=== PATIENT | female | born 1985 | race Caucasian/White ===

== ENCOUNTER 2021-12-14 09:19 | Outpatient (CLI) | payer BC, SELFPAY ==
[2021-12-14] MEDS: RHO(D) IMMUNE GLOBULIN 300 MCG/2 ML SYRINGE IM (14:44)
== END 2021-12-14 09:20 | disposition home or self-care (01) ==
PROVIDERS: PCP Family Medicine; Visit Provider Advanced Practice Midwife
DX: Z36.89 Encounter for other specified antenatal screening (principal); Z3A.00 Weeks of gestation of pregnancy not specified
CPT/HCPCS: 36415; 85461; 86850; 86900; 86901; 90384; 96372; J2790

== ENCOUNTER 2022-02-12 10:02 | Observation (INO) | payer BC, SELFPAY ==
--- NOTE | 2022-02-12 10:02 | OBADM ---
This patient, Serina Spivey, admitted to the OB room OB Post 115 for observation. Patient/family oriented to hospital policies and general routines including ID bracelet, bed and alarms, visiting hours, pain management, procedures, bathroom and other care routines, personal items, smoking policy, room service/diet, and visiting hours. Patient/Family are encouraged to report perceived risks to care and to ask questions if they do not understand what they are told or what they should do.
[2022-02-12 10:22] VITALS: TEMP 36.4
[2022-02-12 10:30] VITALS: BP 107/61; PULSE 105; BMI 34.0
[2022-02-12] MEDS: ONDANSETRON INJ 4 MG/2 ML VIAL IV PUSH (11:02)
[2022-02-12] MEDS: DEXTROSE 5%/LACTATED RINGERS 1,000 ML 999 ML IV CONT (11:02)
[2022-02-12 11:33] LABS: Influenza A QL RT-PCR Negative (Negative); Influenza B QL RT-PCR Negative (Negative); SARS-CoV-2 RNA PCR Negative
--- NOTE | 2022-02-12 12:33 | PM.IMHP ---
H&P: HPI History of Present Illness Date/Time: 02/12/22 12:33 Chief Complaint: cough and nausea Narrative: this patient is a 36-year-old 2 para 1001 at 37 weeks gestation who had a severe cough and associated nausea. She cannot keep down fluids. She reports good movement. She denies any loss of fluid, vaginal bleeding, contractions. Her is uncomplicated. We observed patient for few hours. She was treated with antiemetics and cough syrup with hydrocodone. We got her coughing and her nausea under control. She was resuscitated With IV fluids. She will follow up this week in the office. Review of Systems Review of Systems: All systems reviewed & are unremarkable except as noted in HPI and below Constitutional: Constitutional: Denies chills, Denies fatigue, Denies fever(s) and Denies weakness Eyes: Eyes: Denies blurry vision, Denies change in vision, Denies loss of peripheral vision, Denies loss of vision, Denies other visual disturbances and Denies eye pain ENT: Denies vertigo, Denies dizziness, Denies hearing loss, Denies mouth pain, Denies nasal obstruction, Denies neck mass and Denies neck pain Cardiovascular: Cardiovascular: Denies chest pain, Denies diaphoresis, Denies syncope, Denies leg edema and Denies dyspnea Respiratory: Respiratory: Denies chest congestion, Denies cough, Denies hemoptysis, Denies dyspnea and Denies wheezing Gastrointestinal: Gastrointestinal: Denies abdominal pain, Denies constipation, Denies diarrhea, Denies nausea and Denies vomiting Genitourinary: Genitourinary: Denies hematuria, Denies change in libido, Denies nocturia, Denies genital lesions, Denies flank pain and Denies urinary urgency Musculoskeletal: Musculoskeletal: Denies abnormal gait, Denies back pain, Denies myalgias, Denies arthralgias, Denies joint swelling, Denies muscle weakness and Denies neck pain Integumentary/Breasts: Skin/Breast: Denies swelling, Denies breast pain, Denies breast mass, Denies dry skin, Denies nipple discharge, Denies unusual bruising and Denies jaundice Neurologic: Denies Neuro-related abnormal movements, Denies Abnormal speech present, Denies abnormal gait, Denies behavioral changes, Denies confusion, Denies vertigo, Denies dizziness, Denies syncope, Denies loss of vision, Denies memory loss, Denies convulsions and Denies weakness Psychiatric: Psychiatric: Denies abnormal sleep pattern, Denies behavioral changes, Denies change in libido, Denies confusion, Denies depression, Denies anhedonia and Denies memory loss Endocrine: Endocrine: Reports no additional endocrine complaints, Denies change in libido and Denies fatigue Hematologic/Lymphatic: Hematologic/Lymphatic: Reports no additional hematologic/lymphatic complaints Allergic/Immunologic: Allergic/Immunologic: Reports no additional allergic/immunologic complaints and Denies wheezing PMFSH Past Medical History Medical History (Updated 02/12/22 @ 12:38 by Ian Paulino MD) Asthma Family History Family History Mother Family history of thyroid disease Sibling Family history of psoriasis Grandparent Family history of malignant neoplasm Family history of malignant neoplasm of breast Family history of heart disease in male family member before age 55 Other Diabetes mellitus Hypertension Social History Social History (System 07/01/20 @ 11:22 by Yevgeniy Mora) Smoking status: Never smoker Alcohol intake: current Substance use: never Gender identity (if verbalized by the patient): Female Spiritual care concerns: No Meds Home Medications and Allergies Home Medications Medication Instructions Recorded Confirmed Type albuterol sulfate 90 mcg/actuation 2 puff inhalation Q3-4H PRN 12/19/18 02/02/22 History aerosol inhaler (ProAir HFA) Shortness Of Breath vit no.95-ferrous 1 tablet PO DAILY 12/19/18 02/02/22 History fumarate 28 mg-fol
--- NOTE | 2022-03-01 20:18 | PM.OBTRLD ---
OB - Triage/Final Diagnosis Visit Information Comments/Additional reasons for admission: I have assessed the risk for this patient, Serian Spivey, and determined that she would benefit from observation care. Evaluation Laboratory results: Laboratory Tests 02/12/22 10:49 Influenza A (RT-PCR) Negative Influenza B (RT-PCR) Negative SARS-CoV-2 RNA (RT-PCR) Negative Final Diagnosis (1) Cough: Code(s): R05.9 - Cough, unspecified Status: Acute
== END 2022-02-12 12:57 | disposition home or self-care (01) ==
PROVIDERS: Admitting Provider Obstetrics & Gynecology; PCP Family Medicine; Visit Provider Obstetrics & Gynecology
DX: O26.893 Other specified pregnancy related conditions, third trimester (principal); R05.9 Cough, unspecified; R11.0 Nausea; Z3A.37 37 weeks gestation of pregnancy; Z79.51 Long term (current) use of inhaled steroids; Z79.891 Long term (current) use of opiate analgesic; Z79.899 Other long term (current) drug therapy
CPT/HCPCS: 84112; 87636; 96374; A9270; G0378; G0379; J2405; J7121

== ENCOUNTER 2022-02-17 10:31 | Outpatient (CLI) | payer BC, SELFPAY ==
--- NOTE | 2022-02-20 17:03 | WPDHOLTEREM ---
Holter/Event Monitor Holter/Event Monitor Date of procedure: 02/17/22 Holter/Event Procedure: 24 Hr Holter Monitor Indications: Tachycardia Conclusion: 1. 24 hour holter monitor on 02/17/22. 2. Underlying rhythm is sinus rhythm. HR range 61-152 bpm; average HR 95 bpm. 3. There is 1 premature supraventricular complex. No supraventricular tachycardia. 4. There are 4 premature ventricular complexes. No ventricular tachycardia. 5. No sinoatrial or atrioventricular blocks. No significant pauses greater than 2 seconds. 6. No symptoms available for correlation.
== END 2022-02-17 10:32 | disposition home or self-care (01) ==
PROVIDERS: PCP Family Medicine; Visit Provider Advanced Practice Midwife
DX: R00.0 Tachycardia, unspecified (principal)
CPT/HCPCS: 93225; 93226

== ENCOUNTER 2022-02-26 06:00 | Inpatient (IN) | payer BC, SELFPAY ==
[2022-02-26] VITALS (201 sets, daily range): BP systolic 62–124; BP diastolic 33–100; PULSE 60–165; RESP 18–20; TEMP 36.2–37.2; O2SAT 73–100; BMI 34.2
--- NOTE | 2022-02-26 06:09 | LDADM ---
This patient, Serina Spivey, was admitted to Labor/Delivery/Recovery 105 on 02/26/22 at 06:00. Plans for labor, pain management and were discussed with patient. Patient/family oriented to hospital policies and general routines including ID bracelet, bed and alarms, visiting hours, pain management, procedures, bathroom and other care routines, personal items, smoking policy, room service/diet and guest tray routines, infant security routines, and visiting hours. Patient/Family are encouraged to report perceived risks to care and to ask questions if they do not understand what they are told or what they should do. See OBIX for further documentation.
[2022-02-26 06:48] LABS: Basophils Absolute Auto 0.1 K/mm3 (0.0-0.1); Basophils Percent Auto 0.7 % (0.2-1.2); Eosinophils Absolute Auto 0.1 K/mm3 (0-0.3); Eosinophils Percent Auto 0.9 % (0-4.4); Hematocrit 33.5 % (37.0-47.0); Hemoglobin 11.2 g/dL (12.0-15.0); Immature Granulocyte Absolute 0.03 K/mm3 (0.00-0.031); Immature Granulocyte Percent A 0.3 % (0-0.5); Lymphocytes Absolute Auto 5.25 K/mm3 (0.9-3.2); Mean Corpuscular HGB Conc 33.4 g/dl (32-36); Mean Corpuscular Hemoglobin 30.3 pg (26-34); Mean Corpuscular Volume 90.5 fl (80-100); Mean Platelet Volume 10.2 fl (7.4-10.4); Monocytes Absolute Auto 0.4 K/mm3 (0.1-0.6); Neutrophils Absolute Auto 3.3 K/mm3 (1.3-6.7); Neutrophils Percent Auto 36.1 % (45.5-73.1); Platelet Count Result 231 k/mm3 (150-375); Red Cell Distribution Width 14.4 % (11.5-14.5); White Blood Count 9.1 K/mm3 (4.5-10.0)
[2022-02-26] MEDS: OXYTOCIN 30 UNITS/NS 500 ML 30 UNITS/500 ML BAG IV CONT (07:00)
[2022-02-26] MEDS: LACTATED RINGERS 1,000 ML 125 ML IV CONT ×4 (07:00→16:21)
[2022-02-26 07:08] LABS: Atypical Lymphocytes Present; Platelet Estimate Adequate (Adequate); Schistocytes None Seen (NORMAL)
--- NOTE | 2022-02-26 08:39 | WPDOBADMIT ---
Obstetrics - Admit Note Admission Note: record reviewed. No pertinent additions to the history and/or any subsequent changes in the physical findings that are not consistent with the expected course of the were found. IOL, last aleksandra 6 cm, SVE 2/50/-2, AROM small amount of clear odorless fluid Additions to the history and/or subsequent changes in the physical findings follow. None.
[2022-02-26] MEDS: PHENYLEPHRINE 1,000 MCG/10 ML SYRINGE 1000 MCG (11:11)
[2022-02-26] MEDS: ONDANSETRON INJ 4 MG/2 ML VIAL IV PUSH ×2 (16:21→23:00)
[2022-02-26] MEDS: miSOPROStol 200 MCG TABLET 1000 MCG (19:16)
--- NOTE | 2022-02-26 19:25 | P.PCNOB_ITS ---
OB - Delivery Note Procedure Delivery date: 02/26/22 Procedure: Induction method: AROM Delivery augmentation: Pitocin Delivery monitor: External FHT and External Uterine Route of delivery: Laceration Description: None Specimen: Yes Quantitative Blood Loss (ml): 407 Anesthesia type: Epidural Disposition: Floor Narrative: baby taken to warmer to be evaluated, mom and baby stable now and skin to skin [place] Baby Date of : 02/26/22 Time of : 19:04 Weeks of gestation at delivery: 39 Infant gender: Male Weight (pounds): 6 Weight (ounces): 10 presentation: vertex position: Right Occiput Anterior Placenta delivery description: Spontaneous Cord Vessel Description: 3 Vessels and Clamped/Cut
[2022-02-26] MEDS: CLINDAMYCIN 600 MG/D5W 50 ML 600 MG/50 ML PIGGYBACK 100 MG IVPB (20:31)
[2022-02-26] MEDS: GENTAMICIN 80MG/SOD CHL 50 ML 80 MG/50 ML BAG 100 MG IVPB (21:05)
[2022-02-26] MEDS: BENZOCAINE 20% AER SPR (*SP) 56 GM CAN 1 SPRAY TOPICAL (21:09)
[2022-02-26] MEDS: WITCH HAZEL 40 PADS 1 PAD TOPICAL (21:09)
[2022-02-26] MEDS: IBUPROFEN 600 MG TABLET PO (21:09)
--- NOTE | 2022-02-26 22:18 | OBPPTRN ---
Patient transferred to post room #281 via W/C. Support person present. Oriented to unit, room, information board, rooming in, admission packet and security measures. Patient verbalizes understanding.
[2022-02-26 22:26] LABS: Estimated CRCL calculation 114 ml/min; Estimated Glomerular Filt Rate > 60
[2022-02-26] MEDS: ceFAZolin 2 GM/D5W 50 ML 2 GM/50 ML BAG IVPB (22:30)
[2022-02-26] MEDS: ACETAMINOPHEN 325 MG TABLET 650 MG PO (22:53)
[2022-02-27] VITALS (8 sets, daily range): BP systolic 106–114; BP diastolic 64–79; PULSE 76–82; RESP 16–18; TEMP 36.3–36.9; O2SAT 94–100
[2022-02-27] MEDS: IBUPROFEN 600 MG TABLET PO ×3 (04:20→16:45)
[2022-02-27] MEDS: GENTAMICIN 80MG/SOD CHL 50 ML 80 MG/50 ML BAG 100 MG IVPB ×3 (04:40→21:39)
[2022-02-27] MEDS: ceFAZolin 2 GM/D5W 50 ML 2 GM/50 ML BAG IVPB ×3 (06:30→22:18)
[2022-02-27] MEDS: MULTIVIT/MIN/PREN/FOL AC/IRON TABLET 1 TAB PO (07:00)
[2022-02-27] MEDS: DOCUSATE SODIUM 100 MG CAPSULE PO (07:00)
[2022-02-27] MEDS: ACETAMINOPHEN 325 MG TABLET 650 MG PO ×3 (07:09→20:29)
--- NOTE | 2022-02-27 08:10 | PM.OBPNVD ---
OB - PN: Subj Subjective Date/time seen: 02/27/22 08:10 Patient comments: no complaints baby status: doing well OB - PN: Obj Data Labs 02/26/22 06:28 02/26/22 21:55 Labs: Laboratory Results - last 24 hr 02/26/22 02/26/22 06:28 21:55 Creatinine 0.60 L Estim Creat Clear Calc 114 Estimated GFR > 60 Blood Type A Negative Antibody Screen Positive Antibody Identification Passive Due to RH Imm Glob Antigen Identification Cancelled MEGHAN, IgG Interpret Not Performed MEGHAN, Poly Interpret Negative MEGHAN, Complement Interp Not Performed OB - PN A/P Plan day: 1 Plan: routine care Time Spent With Patient Time: Total time spent is greater than 50% in coordination of care (as documented) at patient's floor/unit and/or counseling patient: Time with patient: less than 15 minutes Review of Systems Review of Systems: All systems reviewed & are unremarkable except as noted in HPI and below Exam Narrative: Fundus firm and vaginal flow controlled. No lower ext redness, warmth, or edema. Negative homans. Const: General: comfortable Chest: Breast/axilla inspection: normal inspection of the breasts Resp: Effort & Inspection: normal respiratory effort Cardio: Rate: regular rate GI: GI Palp: Yes Soft to palpation Psych: Appearance: grossly normal Affect: normal affect Attitude: cooperative Thought content: Yes Normal thought content present Judgement: Good judgement present (Psych)
[2022-02-27] MEDS: WITCH HAZEL 40 PADS 1 PAD TOPICAL (10:30)
[2022-02-27 11:59] LABS: Basophils Absolute Auto 0.1 K/mm3 (0.0-0.1); Basophils Percent Auto 0.5 % (0.2-1.2); Eosinophils Absolute Auto 0.1 K/mm3 (0-0.3); Eosinophils Percent Auto 1.1 % (0-4.4); Hematocrit 32.3 % (37.0-47.0); Hemoglobin 10.4 g/dL (12.0-15.0); Immature Granulocyte Absolute 0.03 K/mm3 (0.00-0.031); Immature Granulocyte Percent A 0.3 % (0-0.5); Lymphocytes Absolute Auto 4.11 K/mm3 (0.9-3.2); Lymphocytes Percent Auto 43.3 % (18.3-44.2); Mean Corpuscular HGB Conc 32.2 g/dl (32-36); Mean Corpuscular Hemoglobin 29.6 pg (26-34); Monocytes Absolute Auto 0.5 K/mm3 (0.1-0.6); Monocytes Percent Auto 5.6 % (2.6-8.5); Neutrophils Absolute Auto 4.7 K/mm3 (1.3-6.7); Neutrophils Percent Auto 49.2 % (45.5-73.1); Platelet Count Result 188 k/mm3 (150-375); Red Blood Count 3.51 M/mm3 (4.2-5.4); Red Cell Distribution Width 14.6 % (11.5-14.5); White Blood Count 9.5 K/mm3 (4.5-10.0)
[2022-02-27 12:07] LABS: Estimated CRCL calculation 114 ml/min; Estimated Glomerular Filt Rate > 60
[2022-02-27 12:20] LABS: Atypical Lymphocytes Present; Platelet Estimate Adequate (Adequate); Schistocytes None Seen (NORMAL)
--- NOTE | 2022-02-27 12:35 | WPDANLDPN2 ---
Anes-Prog Note L&D Date/Time: 02/27/22 12:35 Comfortable throughout: labor and delivery Neuraxial method: epidural Epidural/Spinal procedure site: tender Neuro status: Neuro function grossly intact. Cardiovascular status: normal Respiratory status: normal Airway patency: baseline Mental status: baseline Post-Op hydration status: normal Vital Signs: Last Vital Signs Temp 36.9 C 02/27/22 12:03 Pulse 76 02/27/22 12:03 Resp 16 02/27/22 12:03 BP 111/64 02/27/22 12:03 Pulse Ox 99 02/27/22 12:03 O2 Del Method Room Air 02/27/22 08:22 Pain score (VAS): 3/10 I/O: Intake & Output 02/26/22 02/27/22 02/27/22 23:59 07:59 15:59 Intake Total 1050 100 300 Balance 1050 100 300 Post-procedural complaints: none Patient feedback: Patient satisfied with anesthetic care.
--- NOTE | 2022-02-27 15:51 | PC.NURSE ---
[id number] Per request RN consulted with patient to assess needs related to . Mother led the conversation with her?plans to feed?her and the?experience so far. Mother works well with her infant with encouragement and education. Encouraged understanding of the benefits of skin to skin (demonstrating unwrapping and placing upright on her chest), stimulating with massage touch, changing positions to encourage wakefulness, how to watch for early feeding cues, responsive feeding, feeding on demand (aiming for 8-12 times in 24 hours, about every 2-3 hours), milk production, building/maintaining a milk supply, duration of feeding, signs of adequate intake/output and how to record on the feeding sheet. Reviewed positioning and ear, shoulder, hip alignment, supporting the breast to facilitate a deep latch, asymmetrical latch (off-center), leading with the chin with a big, open, wide gape and body close to mother. Infant latched optimally to the left breast in football position. was able to maintain latch without discomfort to mother but did not maintain suction for more than a few suck, then would hold the nipple in his mouth. Mother has been using the nipple shield, pumping and supplementing with bottles of formula. We discussed the risks and benefits of all the choices and mother was encouraged to continue practicing the skills to strengthen her infant's abilities to effectively breastfeed. Reviewed with mother to pump her breast at least 8 times in a 24 hour period 1-2 times at night if is not latching to the breast. When mother uses the nipple shield the nipple does enter the shield 3/4 of the tip of the shield, however, mother states the nipple had a white crease across the middle of the nipple . Mother does have a history of with a nipple shield for months with her first child. Mother was encouraged to remove the nipple shield after suckled for a time to latch infant without the shield. Nipple care reviewed with optimal latch and good positioning and practice waiting for the big,open, wide gape with the nipple shield as well so to train for optimal latching to the breast. Resources used to facilitate learning were used with the tool, mom and baby guide. Mother voiced understanding of skin to skin, stimulating with massage touch, responsive feedings, talking to infant to encourage if it has been 2-2.5 hours since the start of the last , to call if does not latch, or if there is discomfort with . Resources provided for inpatient/outpatient with the mom/baby guide. Mother voiced understanding of information, demonstrated learning and will call if there is a request for assistance. Reported to the primary RN present in the room.
[2022-02-27 16:55] LABS: Rapid Plasma Reagin Non-Reactive (NonReactive)
[2022-02-27 21:25] LABS: Gentamicin Trough 1.1 ug/mL (<1.0)
[2022-02-28 07:35] VITALS: BP 99/68; PULSE 68; RESP 16; TEMP 36.6; O2SAT 100
--- NOTE | 2022-02-28 07:35 | PM.OBPNVD ---
OB - PN: Subj Subjective Date/time seen: 02/28/22 07:35 s/p vaginal delivery day 2 OB - PN: Obj Data Labs 02/27/22 11:49 02/27/22 11:49 Labs: Laboratory Results - last 24 hr 02/26/22 02/26/22 02/27/22 06:28 06:28 11:49 WBC RBC Hgb Hct MCV MCH MCHC RDW Plt Count MPV Immature Gran % (Auto) Neut % (Auto) Lymph % (Auto) [place] % (Auto) Eos % (Auto) Baso % (Auto) Lymph # (Auto) [place] # (Auto) Eos # (Auto) Baso # (Auto) Abs Immat Gran (auto) Absolute Neuts (auto) Absolute Nucleated RBC Nucleated RBC % Atypical Lymphocytes Platelet Estimate Schistocytes Creatinine 0.60 L Estim Creat Clear Calc 114 Estimated GFR > 60 Gentamicin Trough RPR Non-reactive Antibody Identification Inconclusive Antigen Identification Cancelled 02/27/22 02/27/22 11:49 20:43 WBC 9.5 RBC 3.51 L Hgb 10.4 L Hct 32.3 L MCV 92.0 MCH 29.6 MCHC 32.2 RDW 14.6 H Plt Count 188 MPV 10.0 Immature Gran % (Auto) 0.3 Neut % (Auto) 49.2 Lymph % (Auto) 43.3 [place] % (Auto) 5.6 Eos % (Auto) 1.1 Baso % (Auto) 0.5 Lymph # (Auto) 4.11 H [place] # (Auto) 0.5 Eos # (Auto) 0.1 Baso # (Auto) 0.1 Abs Immat Gran (auto) 0.03 Absolute Neuts (auto) 4.7 Absolute Nucleated RBC 0.0 Nucleated RBC % 0.0 Atypical Lymphocytes Present Platelet Estimate Adequate Schistocytes None seen Creatinine Estim Creat Clear Calc Estimated GFR Gentamicin Trough 1.1 RPR Antibody Identification Antigen Identification OB - PN A/P Plan day: 2 Plan: routine care and discharge home Time Spent With Patient Time: Total time spent is greater than 50% in coordination of care (as documented) at patient's floor/unit and/or counseling patient: Review of Systems Review of Systems: All systems reviewed & are unremarkable except as noted in HPI and below Exam Const: General: cooperative and healthy appearing
--- NOTE | 2022-02-28 07:36 | PM.OBDSVD ---
DS: Admitting Diagnosis Discharge Date 02/28/22 Admitting Diagnosis IOL DS: Discharge Diagnosis Discharge Diagnosis (1) Vaginal delivery: Code(s): O80 - Encounter for full-term uncomplicated delivery Status: Acute OB - DS: Summary OB Procedures : None OB Procedures Intrapartum: Spontaneous Vag Delivery OB Procedures: : None Time Spent with Patient Time attestation: Total time spent providing and/or coordinating discharge services: DS: Data Data Completed and Pending Pending studies at discharge: Pending at discharge 02/26/22 19:08 Surgical [PTH] Routine Labs on day of discharge: Labs from last 24 hours 02/27/22 02/27/22 02/27/22 20:43 11:49 11:49 WBC 9.5 RBC 3.51 L Hgb 10.4 L Hct 32.3 L MCV 92.0 MCH 29.6 MCHC 32.2 RDW 14.6 H Plt Count 188 MPV 10.0 Immature Gran % (Auto) 0.3 Neut % (Auto) 49.2 Lymph % (Auto) 43.3 [place] % (Auto) 5.6 Eos % (Auto) 1.1 Baso % (Auto) 0.5 Lymph # (Auto) 4.11 H [place] # (Auto) 0.5 Eos # (Auto) 0.1 Baso # (Auto) 0.1 Abs Immat Gran (auto) 0.03 Absolute Neuts (auto) 4.7 Absolute Nucleated RBC 0.0 Nucleated RBC % 0.0 Atypical Lymphocytes Present Platelet Estimate Adequate Schistocytes None seen Creatinine 0.60 L Estim Creat Clear Calc 114 Estimated GFR > 60 Gentamicin Trough 1.1 RPR Antibody Identification Antigen Identification 02/26/22 02/26/22 06:28 06:28 WBC RBC Hgb Hct MCV MCH MCHC RDW Plt Count MPV Immature Gran % (Auto) Neut % (Auto) Lymph % (Auto) [place] % (Auto) Eos % (Auto) Baso % (Auto) Lymph # (Auto) [place] # (Auto) Eos # (Auto) Baso # (Auto) Abs Immat Gran (auto) Absolute Neuts (auto) Absolute Nucleated RBC Nucleated RBC % Atypical Lymphocytes Platelet Estimate Schistocytes Creatinine Estim Creat Clear Calc Estimated GFR Gentamicin Trough RPR Non-reactive Antibody Identification Inconclusive Antigen Identification Cancelled Discharge Plan Discharge Attending physician on discharge: Ian Paulino Discharging Clinician: Demetra Gar Patient Disposition: Home, Self-Care Activity: pelvic rest Diet: as tolerated Patient Instructions: Antibiotic Form Stand Alone Forms: General Discharge Information Follow-up/Referrals: Demetra Gar CNM [Certified Nurse Information Systems Analyst] - 4 Weeks Discharge Medications: Continued albuterol sulfate [ProAir HFA] 90 mcg/actuation Hfa Aerosol Inhaler 2 puff INHALATION Q3-4H PRN (Reason: Shortness Of Breath) PNV cmb#95-ferrous fumarate-FA [] 28 mg iron- 800 mcg Tablet 1 tablet PO DAILY Date of admission: 02/26/22 06:00 Primary Care Provider: Tobi,Eilu Abdi Admitting Provider: Ian Paulino Attending physician on admission: Ian Paulino Condition: Stable
[2022-02-28] MEDS: DOCUSATE SODIUM 100 MG CAPSULE PO (07:37)
[2022-02-28] MEDS: IBUPROFEN 600 MG TABLET PO (07:37)
[2022-02-28] MEDS: MULTIVIT/MIN/PREN/FOL AC/IRON TABLET 1 TAB PO (07:37)
--- NOTE | 2022-02-28 09:10 | PC.NURSE ---
Namrata Pelletier RN has looked over and approved patient's charting that Carmen Felder, Student RN, has completed.
--- NOTE | 2022-02-28 09:17 | PC.NURSE ---
Patient to view the discharge video Mother & Baby Care, The First Two Weeks online. Patient was given the opportunity and encouraged to ask questions. Patient verbalized understanding of information shared and has been given the mother/baby guide for home reference.
--- NOTE | 2022-02-28 10:52 | PC.NURSE ---
vitamin, Motrin and Colace given @ 0737 were charted under Josephine Gomez RN but Namrata Pelletier actually gave the medication. Josephine Gomez was logged into the computer and Martínez Pelletier had not logged her out.
--- NOTE | 2022-02-28 14:15 | PC.NURSE ---
1220 - Mother led the conversation with her experience and plan to feed her so far and her ability to continue with the plan of attempting to breastfeed with and without the nipple shield, pump when there is not an effective breastfeed with at least 8 stimulations to the breast in a 24 hour period, then plans to supplement with formula until her milk is to full volume. Mother is feeding appropriately for growth of infant and understands stimulating to eat if needed. Infant has had appropriate feedings in the last 24 hours meets the outcomes for weight, output and jaundice at this time. Mother states she is confident to continue feed her infant at home, when to call for assistance and denies any additional assistance or education at this time. Reinforced understanding of milk production, transition of milk, signs of adequate intake, transition of stool, prevention/relief of engorgement, responsive watching for feeding cues, the different methods of stimulating infant to breastfeed 2-3 hours after the start of the last feeding, community resources, medication information reviewed per [facility] and when to call a provider using the resource of the mom and baby guide. Mother voiced understanding of the education shared.
[2022-03-01 08:46] VITALS: BP 119/68; PULSE 97; RESP 20; TEMP 37.3; O2SAT 98
== END 2022-02-28 12:36 | disposition home or self-care (01) | DRG 806 ==
LOC: ANHLDR 06:03 → ANHOB2 22:23
PROVIDERS: Advanced Practice Midwife; Admitting Provider Obstetrics & Gynecology; PCP Family Medicine; Visit Provider Obstetrics & Gynecology
DX: O75.2 Pyrexia during labor, not elsewhere classified (principal); O41.03X0 Oligohydramnios, third trimester, not applicable or unspecified; Z37.0 Single live birth; O76 Abnormality in fetal heart rate and rhythm complicating labor and delivery; Z3A.39 39 weeks gestation of pregnancy
CPT/HCPCS: 36415; 80170; 82565; 85025; 86592; 86850; 86880; 86900; 86901; 88307; A9270; J0690; J1580; J2370; J2405; J2590; J2795; J7120

== ENCOUNTER 2022-08-13 07:14 | Day surgery (SDC) | payer BC, SELFPAY ==
[2022-08-13] VITALS (16 sets, daily range): BP systolic 101–165; BP diastolic 67–92; PULSE 63–103; RESP 10–17; TEMP 36.6–36.8; O2SAT 98–100
--- NOTE | ~2022-08-13 | CT_ITS ---
EXAMINATION: CT abdomen pelvis w con INDICATION: Diffuse abdominal pain TECHNIQUE: Computed tomographic images of the abdomen and pelvis were obtained after the administrati on of 100 cc of Omnipaque 350 intravenous contrast. The dose-length product (DLP) was 840.93 mGy-cm. Automated exposure control and iterative reconstruction technique were employed. COMPARISON: None available FINDINGS: The lung bases are clear. The heart size is normal. The liver, spleen, pancreas, gallbladde r, and adrenal glands are normal. Hypoattenuating lesions in the kidneys, measuring up to 4 mm on the left, are too small to characterize but likely represent cysts. There are appendicoliths in the base of the dilated appendix which measures up to 11 mm. There is mild edematous stranding of the periapp endiceal fat. There is no evidence of appendiceal perforation or abscess. No pathologically enlarged abdominal or pelvic lymph nodes are identified. No free intraperitoneal gas or evidence of bowel obst ruction. IMPRESSION: 1. Acute appendicitis. Reviewed, dictated and finalized at location A. IMPRESSION: 1. Acute appendicitis.
[2022-08-13 08:02] LABS: Basophils Absolute Auto 0.1 K/mm3 (0.0-0.1); Basophils Percent Auto 0.7 % (0.2-1.2); Eosinophils Absolute Auto 0.4 K/mm3 (0-0.3); Hematocrit 38.3 % (37.0-47.0); Hemoglobin 13.2 g/dL (12.0-15.0); Immature Granulocyte Absolute 0.03 K/mm3 (0.00-0.031); Immature Granulocyte Percent A 0.2 % (0-0.5); Lymphocytes Absolute Auto 3.72 K/mm3 (0.9-3.2); Lymphocytes Percent Auto 29.8 % (18.3-44.2); Mean Corpuscular HGB Conc 34.5 g/dl (32-36); Mean Corpuscular Hemoglobin 30.1 pg (26-34); Mean Corpuscular Volume 87.4 fl (80-100); Mean Platelet Volume 10.8 fl (7.4-10.4); Monocytes Absolute Auto 0.6 K/mm3 (0.1-0.6); Monocytes Percent Auto 5.1 % (2.6-8.5); Neutrophils Absolute Auto 7.7 K/mm3 (1.3-6.7); Neutrophils Percent Auto 61.2 % (45.5-73.1); Platelet Count Result 283 k/mm3 (150-375); Red Blood Count 4.38 M/mm3 (4.2-5.4); Red Cell Distribution Width 12.7 % (11.5-14.5); White Blood Count 12.5 K/mm3 (4.5-10.0)
[2022-08-13 08:33] LABS: Alanine Aminotransferase 29 U/L (6-35); Albumin Level 4.3 g/dL (3.5-5.1); Alkaline Phosphatase 60 U/L (38-126); Anion Gap 5 mmol/L (8-16); Aspartate Amino Transferase 31 U/L (14-36); Bilirubin,Total 0.4 mg/dL (0.2-1.3); Blood Urea Nitrogen 15 mg/dL (7-17); Calcium 9.2 mg/dL (8.4-10.2); Carbon Dioxide 28 mmol/L (22-30); Chloride 104 mmol/L (98-107); Estimated CRCL calculation 87 ml/min; Estimated Glomerular Filt Rate > 60; Glucose 107 mg/dL (65-110); Lipase 70 U/L (23-300); Potassium 4.1 mmol/L (3.4-5.0); Sodium 137 mmol/L (137-145)
[2022-08-13] MEDS: SODIUM CHLORIDE 0.9% IV 1,000 ML 999 ML IV CONT (08:36)
[2022-08-13] MEDS: ONDANSETRON INJ 4 MG/2 ML VIAL IV PUSH (08:36)
--- NOTE | 2022-08-13 08:37 | ED.ABDPAIN ---
HPI - Abdominal Pain General Chief Complaint: Abdominal Pain Stated Complaint: abd pain Time Seen by Provider: 08/13/22 07:49 Source: patient and RN notes reviewed Mode of arrival: ambulatory Limitations: no limitations History of Present Illness HPI narrative: This is a 37 year old female who presents for evaluation of abdominal pain. She states around 4 am this morning, she developed upper abdominal pain that has progressed to diffuse abdominal pain. Her pain has been constant with nausea and vomiting. She rates her pain 8/10. She denies fever, chills, diarrhea. She states she had similar pain 3 years ago that was thought to be due to ovarian cyst but she was unable to get US at that point. She denies any urinary complaints. She denies history of gallstones. She has not taken any medication for her pain Related Data Home Medications Medication Instructions Recorded Confirmed albuterol sulfate 90 mcg/actuation 2 puff inhalation Q3-4H PRN 12/19/18 02/26/22 aerosol inhaler (ProAir HFA) Shortness Of Breath vit no.95-ferrous 1 tablet PO DAILY 12/19/18 02/26/22 fumarate 28 mg-folic acid 800 mcg tablet () Allergies Allergy/AdvReac Type Severity Reaction Status Date / Time latex Allergy Intermediate Hives Verified 02/26/22 06:35 naproxen Allergy Intermediate Hives Verified 02/26/22 06:35 Penicillins Allergy Unknown Rash Verified 07/01/20 11:22 Review of Systems Constitutional: Constitutional: Denies weakness Cardiovascular: Cardiovascular: Denies syncope, Denies rapid heart rate, Denies irregular heart rhythm, Denies leg edema and Denies dyspnea Respiratory: Respiratory: Denies chest congestion, Denies hemoptysis, Denies excessive phlegm production and Denies dyspnea Gastrointestinal: Gastrointestinal: Reports abdominal pain, Denies hematochezia, Denies diarrhea, Reports nausea and Reports vomiting Genitourinary: Genitourinary: Denies hematuria and Denies dysuria Musculoskeletal: Musculoskeletal: Denies joint swelling, Denies loss of height and Denies muscle weakness Neurologic: Denies syncope, Denies focal weakness and Denies weakness [facility] Past Medical History Medical History Asthma Family History Family History Mother Family history of thyroid disease Sibling Family history of psoriasis Grandparent Family history of malignant neoplasm Family history of malignant neoplasm of breast Family history of heart disease in male family member before age 55 Other Diabetes mellitus Hypertension Social History Social History Smoking status: Never smoker Alcohol intake: current Substance use: never Lack of Transportation: No Lack of Food: Never True Current Housing: I Do Not Have Housing Concerned About Future Housing: No Difficulty Paying Gas/Electric Bills: No Difficulty Paying for Meds: No Currently Unemployed: No Education: Master's Degree or Higher Difficulty w/ Childcare or Family Care: No Gender identity (if verbalized by the patient): Female Spiritual care concerns: No Exam Const: General: no acute distress and alert Nutritional Appearance: well nourished Orientation/consciousness: patient oriented x3 HENMT: Head: normal to inspection Eyes: EOM: EOMs intact bilaterally Chest: Chest palpation & inspection: normal inspection of the chest Resp: Effort & Inspection: normal respiratory effort Auscultation: clear to auscultation bilaterally Cardio: Rate: regular rate Rhythm: regular rhythm Heart sounds: no murmurs GI: GI Palp: Yes Soft to palpation, Yes Tenderness to palpation present (GI) (diffuse), No Guarding due to palpation present (GI), No Rigid due to palpation and No Hernia present Auscultation: normal bowel sounds Skin: General skin exam: normal color Rash
[2022-08-13] MEDS: IBUPROFEN IV 400 MG in SODIUM CHLORIDE 0.9% IV 100 ML 208 MG IVPB (09:02)
[2022-08-13 09:10] LABS: Appearance Urine Cloudy (Clear); Bacteria Urine None Seen /hpf; Bilirubin Urine Negative (Negative); Blood Urine Negative (Negative); Color Urine Yellow (Yellow); Glucose Urine UA Negative (Negative); Ketones Urine Negative (Negative); Leukocyte Esterase Ur Trace LEU/UL (Negative); Nitrate Urine Negative (Negative); Non Pathogenic Casts 0-2; Protein Urine Negative (Negative); RBC Urine 0-2 /hpf (0-2); Specific Grav Ur 1.021 (1.001-1.035); Squamous Epithelial Cell Urine Many /hpf (Few); Urobilinogen Urine 0.2 mg/dL (<2.0); WBC Urine 0-5 /hpf; pH Urine 6.5 (5.0-9.0)
[2022-08-13 09:13] LABS: Add Urine Microscopic? YES
[2022-08-13] MEDS: metroNIDAZOLE 500 MG/ISO 100ML 500 MG/100 ML BAG 100 MG IVPB (10:49)
--- NOTE | 2022-08-13 10:55 | WPDANESEPP ---
Anes - Eval Pre Procedure Procedure: Laparoscopic Appendectomy Date/Time: 08/13/22 10:55 Surgeon: Dr. Guerrier Preop Diagnosis: Appendicitis Pre Op Diagnosis: abd pain Patient Data Age: 37 Gender: F Height: 1.57 m Weight: 87 kg Last Vital Signs Temp 98.3 F 08/13/22 10:43 Pulse 103 H 08/13/22 10:43 Resp 16 08/13/22 10:43 BP 108/74 08/13/22 10:43 Pulse Ox 98 08/13/22 10:43 O2 Del Method Room Air 08/13/22 07:32 Allergies Allergy/AdvReac Type Severity Reaction Status Date / Time latex Allergy Intermediate Hives Verified 02/26/22 06:35 naproxen Allergy Intermediate Hives Verified 02/26/22 06:35 Penicillins Allergy Unknown Rash Verified 07/01/20 11:22 Home Medications Medication Instructions Recorded Confirmed Type albuterol sulfate 90 mcg/actuation 2 puff inhalation Q3-4H PRN 12/19/18 02/26/22 History aerosol inhaler (ProAir HFA) Shortness Of Breath vit no.95-ferrous 1 tablet PO DAILY 12/19/18 02/26/22 History fumarate 28 mg-folic acid 800 mcg tablet () Laboratory Tests 08/13/22 08/13/22 08/13/22 07:56 08:16 08:59 WBC 12.5 H K/mm3 (4.5-10.0) RBC 4.38 M/mm3 (4.2-5.4) Hgb 13.2 g/dL (12.0-15.0) Hct 38.3 % (37.0-47.0) MCV 87.4 fl (80-100) MCH 30.1 pg (26-34) MCHC 34.5 g/dl (32-36) RDW 12.7 % (11.5-14.5) Plt Count 283 D k/mm3 (150-375) MPV 10.8 H fl (7.4-10.4) Immature Gran % (Auto) 0.2 % (0-0.5) Neut % (Auto) 61.2 % (45.5-73.1) Lymph % (Auto) 29.8 % (18.3-44.2) [place] % (Auto) 5.1 % (2.6-8.5) Eos % (Auto) 3.0 % (0-4.4) Baso % (Auto) 0.7 % (0.2-1.2) Lymph # (Auto) 3.72 H K/mm3 (0.9-3.2) [place] # (Auto) 0.6 K/mm3 (0.1-0.6) Eos # (Auto) 0.4 H K/mm3 (0-0.3) Baso # (Auto) 0.1 K/mm3 (0.0-0.1) Abs Immat Gran (auto) 0.03 K/mm3 (0.00-0.031) Absolute Neuts (auto) 7.7 H K/mm3 (1.3-6.7) Absolute Nucleated RBC 0.0 K/mm3 (0.0-0.012) Nucleated RBC % 0.0 % (0.0-0.2) Sodium 137 mmol/L (137-145) Potassium 4.1 mmol/L (3.4-5.0) Chloride 104 mmol/L (98-107) Carbon Dioxide 28 mmol/L (22-30) Anion Gap 5 L mmol/L (8-16) BUN 15 mg/dL (7-17) Creatinine 0.80 mg/dL (0.7-1.0) Estim Creat Clear Calc 87 ml/min Estimated GFR > 60 (59 - ) Glucose 107 mg/dL (65-110) Calcium 9.2 mg/dL (8.4-10.2) Total Bilirubin 0.4 mg/dL (0.2-1.3) AST 31 U/L (14-36) ALT 29 U/L (6-35) Alkaline Phosphatase 60 U/L (38-126) Total Protein 8.0 g/dL (6.3-8.2) Albumin 4.3 g/dL (3.5-5.1) Lipase 70 U/L (23-300) Urine Color Yellow (Yellow) Urine Appearance Cloudy H (Clear) Urine pH 6.5 (5.0-9.0) Ur Specific [place] 1.021 (1.001-1.035) Urine Protein Negative mg/dL (Negative) Urine Glucose (UA) Negative mg/dL (Negative) Urine Ketones Negative mg/dL (Negative) Ur Blood (Man) Negative (Negative) Urine Nitrate Negative (Negative) Urine Bilirubin Negative (Negative) Urine Urobilinogen 0.2 mg/dL (<2.0) Leukocyte Esterase Rfl Trace H MONAE/UL (Negative) Urine RBC 0-2 /hpf (0-2) Urine WBC 0-5 /hpf Ur Squamous Epith Cells Many H /hpf (Few) Urine Bacteria None seen /hpf Urine Casts 0-2 HCG: negative (urine preg obtained in ER) Patient hx anesthesia problems: none Family hx anesthesia problems: none Results Review: All pre-operative results and documents have been reviewed as part of the pre-operative evaluation. PMFSH Past Me
[2022-08-13] MEDS: ceFAZolin 2 GM/D5W 50 ML 2 GM/50 ML BAG IVPB (12:03)
--- NOTE | 2022-08-13 12:37 | WPDANESEPPF ---
Anes - Initial Pre Proc Eval Procedure: Operation Date: 08/13/22 12:30 Proposed Procedures p Laparoscopic Appendectomy - Mykel Guerrier DO Date/Time: 08/13/22 12:37 Surgeon: Mykel Guerrier DO Pre Op Diagnosis: abd pain Patient Data Age: 37 Gender: F Height: 1.57 m Weight: 87 kg Last Vital Signs Temp 36.8 C 08/13/22 12:31 Pulse 76 08/13/22 12:31 Resp 16 08/13/22 12:31 BP 115/78 08/13/22 12:31 Pulse Ox 98 08/13/22 12:31 O2 Del Method Room Air 08/13/22 07:32 Allergies Allergy/AdvReac Type Severity Reaction Status Date / Time latex Allergy Intermediate Hives Verified 02/26/22 06:35 naproxen Allergy Intermediate Hives Verified 02/26/22 06:35 Penicillins Allergy Unknown Rash Verified 07/01/20 11:22 Home Medications Medication Instructions Recorded Confirmed Type albuterol sulfate 90 mcg/actuation 2 puff inhalation Q3-4H PRN 12/19/18 02/26/22 History aerosol inhaler (ProAir HFA) Shortness Of Breath vit no.95-ferrous 1 tablet PO DAILY 12/19/18 02/26/22 History fumarate 28 mg-folic acid 800 mcg tablet () Laboratory Tests 08/13/22 08/13/22 08/13/22 07:56 08:16 08:59 WBC 12.5 H K/mm3 (4.5-10.0) RBC 4.38 M/mm3 (4.2-5.4) Hgb 13.2 g/dL (12.0-15.0) Hct 38.3 % (37.0-47.0) MCV 87.4 fl (80-100) MCH 30.1 pg (26-34) MCHC 34.5 g/dl (32-36) RDW 12.7 % (11.5-14.5) Plt Count 283 D k/mm3 (150-375) MPV 10.8 H fl (7.4-10.4) Immature Gran % (Auto) 0.2 % (0-0.5) Neut % (Auto) 61.2 % (45.5-73.1) Lymph % (Auto) 29.8 % (18.3-44.2) [place] % (Auto) 5.1 % (2.6-8.5) Eos % (Auto) 3.0 % (0-4.4) Baso % (Auto) 0.7 % (0.2-1.2) Lymph # (Auto) 3.72 H K/mm3 (0.9-3.2) [place] # (Auto) 0.6 K/mm3 (0.1-0.6) Eos # (Auto) 0.4 H K/mm3 (0-0.3) Baso # (Auto) 0.1 K/mm3 (0.0-0.1) Abs Immat Gran (auto) 0.03 K/mm3 (0.00-0.031) Absolute Neuts (auto) 7.7 H K/mm3 (1.3-6.7) Absolute Nucleated RBC 0.0 K/mm3 (0.0-0.012) Nucleated RBC % 0.0 % (0.0-0.2) Sodium 137 mmol/L (137-145) Potassium 4.1 mmol/L (3.4-5.0) Chloride 104 mmol/L (98-107) Carbon Dioxide 28 mmol/L (22-30) Anion Gap 5 L mmol/L (8-16) BUN 15 mg/dL (7-17) Creatinine 0.80 mg/dL (0.7-1.0) Estim Creat Clear Calc 87 ml/min Estimated GFR > 60 (59 - ) Glucose 107 mg/dL (65-110) Calcium 9.2 mg/dL (8.4-10.2) Total Bilirubin 0.4 mg/dL (0.2-1.3) AST 31 U/L (14-36) ALT 29 U/L (6-35) Alkaline Phosphatase 60 U/L (38-126) Total Protein 8.0 g/dL (6.3-8.2) Albumin 4.3 g/dL (3.5-5.1) Lipase 70 U/L (23-300) Urine Color Yellow (Yellow) Urine Appearance Cloudy H (Clear) Urine pH 6.5 (5.0-9.0) Ur Specific [place] 1.021 (1.001-1.035) Urine Protein Negative mg/dL (Negative) Urine Glucose (UA) Negative mg/dL (Negative) Urine Ketones Negative mg/dL (Negative) Ur Blood (Man) Negative (Negative) Urine Nitrate Negative (Negative) Urine Bilirubin Negative (Negative) Urine Urobilinogen 0.2 mg/dL (<2.0) Leukocyte Esterase Rfl Trace H MONAE/UL (Negative) Urine RBC 0-2 /hpf (0-2) Urine WBC 0-5 /hpf Ur Squamous Epith Cells Many H /hpf (Few) Urine Bacteria None seen /hpf Urine Casts 0-2 HCG: negative (urine preg obtained in ER) Patient hx anesthesia problems: none Family hx anesthesia problems: none Results Review: All pre-operative results and documents have been
--- NOTE | 2022-08-13 12:41 | WPDHPUPDATE1 ---
History and Physical Update Update Date/Time: 08/13/22 12:41 History and Physical has been reviewed, including an updated exam of the patient. There are NO changes in the patient's condition. Risks, benefits, and alternatives have been discussed and questions answered. Patient agrees to proceed with procedure.
--- NOTE | 2022-08-13 12:41 | PM.IMHP ---
H&P: HPI History of Present Illness Date/Time: 08/13/22 12:41 Chief Complaint: Right lower quadrant pain Narrative: This is a 37-year-old woman who presented to the emergency department this morning with right lower quadrant pain that woke her up earlier this morning from sleep. She states that yesterday she was feeling fine and this only started this morning. She has had nausea and vomiting. She denies any fevers or chills. She has had minor symptoms like this in the past that she thought might be related to ovarian cysts but never anything this severe or constant. Review of Systems Review of Systems: All systems reviewed & are unremarkable except as noted in HPI and below Constitutional: Constitutional: Denies chills and Denies fever(s) Eyes: Eyes: Denies change in vision ENT: Denies hearing loss, Denies neck pain and Denies sore throat Cardiovascular: Cardiovascular: Denies chest pain and Denies dyspnea Respiratory: Respiratory: Denies cough, Denies dyspnea and Denies wheezing Gastrointestinal: Gastrointestinal: Reports as per HPI Genitourinary: Genitourinary: Denies hematuria and Denies dysuria Musculoskeletal: Musculoskeletal: Denies arthralgias, Denies joint swelling and Denies neck pain Allergic/Immunologic: Allergic/Immunologic: Denies wheezing PMFSH Past Medical History Medical History Asthma Family History Family History Mother Family history of thyroid disease Sibling Family history of psoriasis Grandparent Family history of malignant neoplasm Family history of malignant neoplasm of breast Family history of heart disease in male family member before age 55 Other Diabetes mellitus Hypertension Social History Social History Smoking status: Never smoker Alcohol intake: current Substance use: never Lack of Transportation: No Lack of Food: Never True Current Housing: I Do Not Have Housing Concerned About Future Housing: No Difficulty Paying Gas/Electric Bills: No Difficulty Paying for Meds: No Currently Unemployed: No Education: Master's Degree or Higher Difficulty w/ Childcare or Family Care: No Gender identity (if verbalized by the patient): Female Spiritual care concerns: No Meds Home Medications and Allergies Home Medications Medication Instructions Recorded Confirmed Type albuterol sulfate 90 mcg/actuation 2 puff inhalation Q3-4H PRN 12/19/18 02/26/22 History aerosol inhaler (ProAir HFA) Shortness Of Breath vit no.95-ferrous 1 tablet PO DAILY 12/19/18 02/26/22 History fumarate 28 mg-folic acid 800 mcg tablet () Allergies Allergy/AdvReac Type Severity Reaction Status Date / Time latex Allergy Intermediate Hives Verified 02/26/22 06:35 naproxen Allergy Intermediate Hives Verified 02/26/22 06:35 Penicillins Allergy Unknown Rash Verified 07/01/20 11:22 Vital Signs Vital Signs - 24 hr 08/13/22 07:32 08/13/22 10:43 08/13/22 09:30 Temperature 36.6 C 36.8 C Pulse Rate 98 103 H 101 H Respiratory Rate 16 16 16 Blood Pressure 165/92 H 108/74 101/84 Pulse Oximetry 100 98 100 Oxygen Delivery Room Air 08/13/22 08:30 08/13/22 12:31 Temperature 36.8 C 36.8 C Pulse Rate 99 76 Respiratory Rate 16 16 Blood Pressure 106/73 115/78 Pulse Oximetry 98 98 Oxygen Delivery Exam Const: General: alert; No acute distress Orientation/consciousness: patient oriented x3 Limitations: no limitations HENMT: Head: normocephalic and atraumatic Ears: hearing grossly normal bilaterally Face/Nose/Sinus: Normal external nose present and Normal nares present Mouth: Yes Normal oral and palatal mucosa present and Yes moist mucous membranes Eyes: General: appearance normal, both eyes and all related structures Conjunctivae: conjunctivae normal Sclera:
--- NOTE | 2022-08-13 13:18 | W.PM.PROC2 ---
Procedure Note - Detailed Date of Procedure 08/13/22 Pre-op Diagnosis Acute appendicitis Post-op Diagnosis Same Procedure Performed Laparoscopic appendectomy Surgeon Mykel Guerrier, DO Anesthesia General and Local (0.5% bupivicaine with epinephrine) Indications This is a 37-year-old woman who presented to the emergency department this morning with right lower quadrant pain that woke her up from sleep earlier this morning. She was found to have right lower quadrant tenderness and leukocytosis. CT showed evidence of acute appendicitis. Discussions were made with the patient about treatment options and decision was made to proceed with laparoscopic appendectomy, possible open. Findings Laparoscopic appendectomy was performed. The appendix appeared dilated and inflamed but there was no evidence of perforation or abscess. No other intra-abdominal abnormalities were noted. The base of the appendix appeared healthy and viable. The appendix was removed and sent to the lab for pathology. Description of Procedure Procedure as well as risks, benefits, and alternatives were explained to the patient. The patient agreed to proceed. Written consent was obtained and placed in chart prior to procedure. The patient was brought back to surgical suite. She was placed supine on operating table. Time-out was done to confirm the patient and procedure. The patient was then intubated by the Anesthesia Department. Her abdomen was prepped and draped in sterile fashion using chlorhexidine prep. A 5 mm incision was made just to the left of the patient's umbilicus and a 5 mm Optiview trocar was advanced through the abdominal layers under direct visualization. Once inside the peritoneal cavity, carbon dioxide insufflation was used to create a pneumoperitoneum. The camera was inserted and the abdomen was inspected. No immediate abnormalities were identified. The patient was then placed in slight Trendelenburg position and rotated to the left. A 5 mm incision was made in the suprapubic region in midline and a 5 mm trocar was inserted under direct visualization. A 12 mm incision was made in the left lower quadrant and a 12 mm trocar was inserted under direct visualization. The right lower quadrant was carefully inspected. The cecum was identified and then this was traced back to the appendix. The appendix was identified and grasped at the mesoappendix and lifted anteriorly. Careful blunt dissection was carried out at the base of the appendix through the mesoappendix using a [place] grasper. An Endo-JOEY 45 mm blue load stapler was then advanced across the base of the appendix and clamped and fired. A white reload was then clamped across the mesoappendix and fired. This freed up our appendix completely. It was then placed in an EndoCatch bag and removed through the left lower quadrant port. The staple lines were then inspected. Hemostasis appeared adequate and the staple lines appeared secure. The area was then irrigated with sterile saline. The pelvis was then carefully inspected and irrigated with sterile saline as well and the remainder of the abdomen was carefully inspected. The patient was then flattened out in bed. One final inspection was made around the abdominal cavity and no other abnormalities were seen. The left lower quadrant port was removed and a Johnny-Sharlene cone was used to approximate the fascia with an 0 Vicryl simple interrupted suture. The remaining ports were then removed under direct visualization. The camera was removed and the pneumoperitoneum was released. 0.5% bupivacaine with epinephrine was infiltrated locally around each of the incisions. The skin of the incisions was then approximated using 4-0 Monocryl subcuticular suture and Exofin glue was applied on top. The patient was then awakened from anesthesia, extubated, and transferred to Recovery. Estimated Blood Loss 10 Urine Output 300 Pathology Yes (Appendix) Complications No immed
[2022-08-13] MEDS: LACTATED RINGERS 1,000 ML 30 ML IV CONT ×3 (13:27→15:55)
[2022-08-13] MEDS: fentaNYL CITRATE INJ (*CRX) 100 MCG/2 ML VIAL 25 MCG IV PUSH ×8 (13:48→14:20)
[2022-08-13] MEDS: oxyCODONE HCL (*CRX) 5 MG TAB IR PO (14:41)
[2022-08-13] MEDS: ONDANSETRON HCL ODT 4 MG TABLET PO (15:17)
[2022-08-13] MEDS: diphenhydrAMINE HCl INJ 50 MG/ML VIAL 6.25 MG IV PUSH (15:58)
== END 2022-08-13 16:50 | disposition home or self-care (01) ==
LOC: ANHED 10:51 → ANHSURGERY 12:16
PROVIDERS: Emergency Provider General Practice; PCP Family Medicine Sports Medicine; Visit Provider Surgery
PROC: 0DTJ4ZZ Resection of Appendix, Percutaneous Endoscopic Approach (ICD-10-PCS; CPT 44970; principal; 2022-08-13 12:30)
DX: K35.80 Unspecified acute appendicitis (principal); J45.909 Unspecified asthma, uncomplicated; Z79.51 Long term (current) use of inhaled steroids
CPT/HCPCS: 44970; 36415; 74177; 80053; 81001; 81025; 83690; 85025; 88304; 96365; 96367; 96375; 99285; A9270; J0690; J1200; J1741; J1836; J2250; J2405; J2704; J2710; J3010; J7030; J7120; Q9967

== ENCOUNTER 2024-09-04 07:50 | Outpatient (CLI) | payer BC, SELFPAY ==
--- NOTE | ~2024-09-04 | MMUS_ITS ---
EXAMINATION: MM diagnostic montrell BI w ramon, US breast LT limited INDICATION: 39-year old female; presents for imaging evaluation of left breast lump at 9:00 and left breast pain around 3:00 location for about 4 weeks intermittently. History of breast cancer in mother and maternal grandmother at age 58. COMPARISON: None available. TECHNIQUE: Digital breast tomosynthesis CC and MLO views of Both breasts were obtained with computer- aided detection to assist in interpretation of the study. A radiopaque skin marker was placed over th e area of LEFT breast palpable lump. FINDINGS: There are scattered areas of fibroglandular density. There are no suspicious masses, calcifications, architectural distortion or any other abnormality in Both breasts. No suspicious mammographic abnormality correlates to the radiopaque skin marker. LEFT BREAST ULTRASOUND FINDINGS: Targeted sonographic evaluation of the palpable area was completed. There is no sonographic abnormali ty that correlates to the area of palpable lump or the area of pain identified by the patient. . IMPRESSION: 1. No mammographic or sonographic finding correlate to the area of palpable lump of the area of pain in the left breast. 2. No mammographic evidence of malignancy within the right breast. RECOMMENDATION: Clinical management of patient's palpable lump and breast pain. BI-RADS 1, NEGATIVE Reviewed, dictated and finalized at location B. IMPRESSION: 1. No mammographic or sonographic finding correlate to the area of palpable lum p of the area of pain in the left breast. 2. No mammographic evidence of malignancy within the right breast. RECOMMENDATION: Clinical management of patient's palpable lump and breast pain. BI-RADS 1, NEGATIVE
== END 2024-09-04 07:51 | disposition home or self-care (01) ==
PROVIDERS: PCP Nurse Practitioner Family; Visit Provider Nurse Practitioner Family
DX: N64.4 Mastodynia (principal); N63.20 Unspecified lump in the left breast, unspecified quadrant
CPT/HCPCS: 76642; 77062; 77066; G0279